=== PATIENT | female | born 1995 | race Caucasian/White ===

== ENCOUNTER 2017-10-30 20:16 | Emergency (ER) | payer OTHER ==
[~2017-10-30] VITALS: Ht 162.6 cm; Wt 66.0 kg
[2017-10-31 02:11] LABS: CLARITY URINE CLOUDY (CLEAR); COLOR URINE YELLOW (YELLOW); KETONES URINE 4+ (NEGATIVE); LEUKOCYTE ESTERASE URINE 2+ (NEGATIVE); NITRITE URINE NEGATIVE (NEGATIVE); OCCULT BLOOD URINE 1+ (NEGATIVE); PH URINE 5.5 (4.5-8.0); PROTEIN URINE 1+ (NEGATIVE); SPECIFIC GRAVITY URINE 1.018 (1.005-1.030)
[2017-10-31] MEDS ORDERED: MORPHINE SULFATE 4 MG/ML CPJ (NOT FOR IM USE) IV STA (02:35)
[2017-10-31] MEDS ORDERED: ONDANSETRON HCL 4MG/2ML VIAL IV STA (02:35)
[2017-10-31] MEDS ORDERED: SODIUM CHLORIDE 0.9% 1,000 ML IV ONE (02:35)
[2017-10-31 02:55] LABS: BASOPHILS % 0.2 % (0.0-2.0); EOSINOPHILS % 0.1 % (0.0-5.0); HEMATOCRIT. 40.3 % (36.0-48.0); HEMOGLOBIN. 13.9 g/dL (12.0-16.0); LYMPHOCYTES % 8.6 % (20.0-50.0); MEAN CORPUSCULAR HEMOGLOBIN 28.7 pg (28.0-32.0); MEAN CORPUSCULAR VOLUME 82.9 fL (81.0-99.0); MEAN PLATELET VOLUME 8.9 fl (7.4-10.4); MONOCYTES % 10.6 % (2.0-8.0); NEUTROPHILS % 80.5 % (40.0-76.0); PLATELET 276 x1000/uL (130-400); RED BLOOD CELL COUNT 4.86 mill/uL (4.2-5.4); RED CELL DISTRIBUTION WIDTH 14.1 % (11.6-14.6)
[2017-10-31 03:07] LABS: CARBON DIOXIDE 21 mEq/L (21-32); CHLORIDE 101 mEq/L (98-107)
[2017-10-31] MEDS ORDERED: CEFTRIAXONE 1 G PREMIX 50 ML IV SCH (05:00)
[2017-10-31] MEDS ORDERED: MORPHINE SULFATE 4 MG/ML CPJ (NOT FOR IM USE) IV ONE (07:00)
[2017-10-31] MEDS ORDERED: LEVOFLOXACIN 750MG PREMIX 150 ML IV ONE (07:00)
[2017-10-31] MEDS ORDERED: ONDANSETRON HCL 4MG/2ML VIAL IV ONE (07:00)
[2017-10-31 07:20] LABS: PLATELET ESTIMATE NORMAL
[2017-10-31 09:18] VITALS: BP 120/68
== END 2017-10-31 09:19 | disposition home or self-care (01) ==
LOC: ER 20:45
DX: N39.0 Urinary tract infection, site not specified (principal)
CPT/HCPCS: 36415; 76770; 76856; 80053; 81001; 83690; 85025; 96361; 96365; 96367; 96375; 96376; 99285; J0696; J1956; J2270; J2405; J7030; Z7610

== ENCOUNTER 2018-02-18 21:41 | Emergency (ER) | payer OTHER ==
[~2018-02-18] VITALS: Ht 162.6 cm; Wt 64.0 kg
[2018-02-18] MEDS ORDERED: SODIUM CHLORIDE 0.9% 1,000 ML IV ONE (21:50)
[2018-02-18 23:03] LABS: BASOPHILS % 0.5 % (0.0-2.0); EOSINOPHILS % 3.3 % (0.0-5.0); HEMATOCRIT. 40.9 % (36.0-48.0); HEMOGLOBIN. 14.1 g/dL (12.0-16.0); LYMPHOCYTES % 17.6 % (20.0-50.0); MEAN CORPUSCULAR HEMOGLOBIN 30.4 pg (28.0-32.0); MEAN CORPUSCULAR VOLUME 88.1 fL (81.0-99.0); MEAN PLATELET VOLUME 9.3 fl (7.4-10.4); MONOCYTES % 5.3 % (2.0-8.0); NEUTROPHILS % 73.3 % (40.0-76.0); PLATELET 235 x1000/uL (130-400); RED BLOOD CELL COUNT 4.64 mill/uL (4.2-5.4); RED CELL DISTRIBUTION WIDTH 13.2 % (11.6-14.6)
[2018-02-18 23:07] LABS: CHLORIDE 108 mEq/L (98-107)
[2018-02-18 23:09] LABS: HCG SCREEN NEGATIVE
[2018-02-18 23:13] LABS: INR 1.1; PARTIAL THROMBOPLASTIN TIME 26.6 sec (23.4-31.0); PROTHROMBIN TIME 11.4 sec (9.4-11.6)
[2018-02-19] MEDS ORDERED: HYDROCODONE/ACETAMINOPHEN 5/325MG TABLET PO ONE (00:15)
[2018-02-19] MEDS ORDERED: ONDANSETRON 4MG ODT PO ONE (00:15)
[2018-02-19] MEDS ORDERED: ONDANSETRON HCL 4MG/2ML VIAL IV ONE (01:15)
[2018-02-19] MEDS ORDERED: KETOROLAC 30MG/ML VIAL IV ONE (01:15)
[2018-02-19 01:40] VITALS: BP 110/55
== END 2018-02-19 01:44 | disposition home or self-care (01) ==
LOC: ER 22:01
DX: R07.89 Other chest pain (principal); E86.0 Dehydration; I10 Essential (primary) hypertension
CPT/HCPCS: 36415; 71045; 80053; 83690; 83880; 84484; 84703; 85025; 85610; 85730; 93005; 96361; 96374; 96375; 99285; J1885; J2405; J7030; Q0162; Z7610

== ENCOUNTER 2018-11-05 11:42 | Emergency (ER) | payer OTHER ==
[~2018-11-05] VITALS: Ht 162.6 cm; Wt 58.0 kg
[2018-11-05] MEDS ORDERED: ONDANSETRON HCL 4MG/2ML INJ IV STA (12:54)
[2018-11-05] MEDS ORDERED: ACETAMINOPHEN 325MG TABLET PO STA (12:54)
[2018-11-05] MEDS ORDERED: SODIUM CHLORIDE 0.9% 1,000 ML IV ONE ×2 (12:54→15:04)
[2018-11-05 13:19] LABS: CHLORIDE 107 mEq/L (98-107)
[2018-11-05 13:25] LABS: INR 1.1; PROTHROMBIN TIME 10.8 sec (9.1-11.1)
[2018-11-05 13:27] LABS: BASOPHILS % 0.5 % (0.0-2.0); EOSINOPHILS % 3.1 % (0.0-5.0); HEMATOCRIT. 41.6 % (36.0-48.0); HEMOGLOBIN. 14.4 g/dL (12.0-16.0); LYMPHOCYTES % 22.5 % (20.0-50.0); MEAN CORPUSCULAR HEMOGLOBIN 30.9 pg (28.0-32.0); MEAN CORPUSCULAR VOLUME 89.4 fL (81.0-99.0); MEAN PLATELET VOLUME 9.4 fl (7.4-10.4); MONOCYTES % 9.3 % (2.0-8.0); NEUTROPHILS % 64.6 % (40.0-76.0); PLATELET 214 x1000/uL (130-400); RED BLOOD CELL COUNT 4.65 mill/uL (4.2-5.4); RED CELL DISTRIBUTION WIDTH 12.9 % (11.6-14.6)
[2018-11-05 14:24] LABS: CLARITY URINE CLEAR (CLEAR); COLOR URINE YELLOW (YELLOW); KETONES URINE NEGATIVE (NEGATIVE); LEUKOCYTE ESTERASE URINE NEGATIVE (NEGATIVE); NITRITE URINE NEGATIVE (NEGATIVE); OCCULT BLOOD URINE NEGATIVE (NEGATIVE); PH URINE 5.5 (4.5-8.0); PROTEIN URINE NEGATIVE (NEGATIVE); SPECIFIC GRAVITY URINE 1.011 (1.005-1.030); UROBILINOGEN URINE 0.2 E.U./dL (0.2-1.0)
[2018-11-05 14:51] LABS: *AMPHETAMINES SCREEN URINE NEGATIVE (NEGATIVE); *BARBITURATES SCREEN URINE NEGATIVE (NEGATIVE); *BENZODIAZEPINES SCREEN URINE NEGATIVE (NEGATIVE); *COCAINE SCREEN URINE NEGATIVE (NEGATIVE)
[2018-11-05 14:52] LABS: METHADONE URINE SCREEN NEGATIVE (NEGATIVE); OPIATES URINE SCREEN NEGATIVE (NEGATIVE); PHENCYCLIDINE URINE SCREEN NEGATIVE (NEGATIVE)
[2018-11-05 14:55] LABS: CANNABINOID URINE SCREEN PRESUMTIVE POSITIVE (NEGATIVE)
[2018-11-05 17:01] VITALS: BP 119/81
== END 2018-11-05 18:14 | disposition home or self-care (01) ==
LOC: ER 12:54
DX: R53.1 Weakness (principal); R51 Headache; R11.0 Nausea
CPT/HCPCS: 36415; 80053; 80305; 81003; 81025; 83690; 85025; 85610; 93005; 96361; 96374; 99284; J2405; J7030

== ENCOUNTER 2018-11-06 09:18 | Emergency (ER) | payer SELFPAY ==
[~2018-11-06] VITALS: Ht 162.6 cm; Wt 56.4 kg
[2018-11-06] MEDS ORDERED: KETOROLAC 30MG/ML VIAL IV STA (09:46)
[2018-11-06] MEDS ORDERED: SODIUM CHLORIDE 0.9% 1,000 ML IV ONE (09:46)
[2018-11-06] MEDS ORDERED: ONDANSETRON HCL 4MG/2ML INJ IV STA (09:46)
[2018-11-06] MEDS ORDERED: DEXAMETHASONE 10 MG/ML VIAL IV ONE (10:00)
[2018-11-06] MEDS ORDERED: FENTANYL CITRATE/PF 50MCG/ML 2ML VIAL IV ONE (10:00)
[2018-11-06 10:17] LABS: CLARITY URINE CLEAR (CLEAR); COLOR URINE YELLOW (YELLOW); KETONES URINE NEGATIVE (NEGATIVE); LEUKOCYTE ESTERASE URINE NEGATIVE (NEGATIVE); NITRITE URINE NEGATIVE (NEGATIVE); OCCULT BLOOD URINE NEGATIVE (NEGATIVE); PH URINE 6.5 (4.5-8.0); PROTEIN URINE NEGATIVE (NEGATIVE); UROBILINOGEN URINE 0.2 E.U./dL (0.2-1.0)
[2018-11-06 10:30] LABS: *AMPHETAMINES SCREEN URINE NEGATIVE (NEGATIVE); *BARBITURATES SCREEN URINE NEGATIVE (NEGATIVE); *BENZODIAZEPINES SCREEN URINE NEGATIVE (NEGATIVE)
[2018-11-06 10:30] LABS: BASOPHILS % 0.6 % (0.0-2.0); HEMATOCRIT. 41.8 % (36.0-48.0); HEMOGLOBIN. 14.5 g/dL (12.0-16.0); LYMPHOCYTES % 14.3 % (20.0-50.0); MEAN CORPUSCULAR HEMOGLOBIN 31.2 pg (28.0-32.0); MEAN CORPUSCULAR VOLUME 90.1 fL (81.0-99.0); MEAN PLATELET VOLUME 9.5 fl (7.4-10.4); MONOCYTES % 10.8 % (2.0-8.0); NEUTROPHILS % 69.3 % (40.0-76.0); PLATELET 189 x1000/uL (130-400); RED BLOOD CELL COUNT 4.64 mill/uL (4.2-5.4); RED CELL DISTRIBUTION WIDTH 12.8 % (11.6-14.6)
[2018-11-06 10:31] LABS: *COCAINE SCREEN URINE NEGATIVE (NEGATIVE); METHADONE URINE SCREEN NEGATIVE (NEGATIVE); OPIATES URINE SCREEN NEGATIVE (NEGATIVE); PHENCYCLIDINE URINE SCREEN NEGATIVE (NEGATIVE)
[2018-11-06 10:33] LABS: CANNABINOID URINE SCREEN PRESUMTIVE POSITIVE (NEGATIVE)
[2018-11-06 10:37] LABS: CHLORIDE 109 mEq/L (98-107)
[2018-11-06 10:42] LABS: ETHANOL BLOOD < 10 mg/dL
[2018-11-06 10:44] LABS: INR 1.1; PARTIAL THROMBOPLASTIN TIME 27.9 sec (23.4-31.0); PROTHROMBIN TIME 10.7 sec (9.1-11.1)
[2018-11-06 10:57] LABS: HCG SCREEN NEGATIVE
[2018-11-06 12:40] VITALS: BP 118/70
== END 2018-11-06 13:11 | disposition home or self-care (01) ==
LOC: ER 09:18
DX: R51 Headache (principal); R42 Dizziness and giddiness; R11.2 Nausea with vomiting, unspecified; F12.10 Cannabis abuse, uncomplicated; N15.9 Renal tubulo-interstitial disease, unspecified
CPT/HCPCS: 36415; 70450; 80053; 80305; 81003; 81025; 83690; 84484; 84703; 85025; 85610; 85730; 93005; 96361; 96374; 96375; 99284; G0482; J1100; J1885; J2405; J3010; J7030

== ENCOUNTER 2019-07-22 12:59 | Emergency (ER) | payer MEDICAID, OTHER ==
[~2019-07-22] VITALS: Ht 162.6 cm; Wt 58.0 kg
[2019-07-22] MEDS ORDERED: KETOROLAC 30MG/ML VIAL IV STA (15:27)
[2019-07-22] MEDS ORDERED: SODIUM CHLORIDE 0.9% 1,000 ML IV ONE (15:27)
[2019-07-22] MEDS ORDERED: ONDANSETRON HCL 4MG/2ML INJ IV STA (15:27)
[2019-07-22 16:08] LABS: BASOPHILS % 0.1 % (0.0-2.0); EOSINOPHILS % 5.5 % (0.0-5.0); HEMATOCRIT. 40.9 % (36.0-48.0); HEMOGLOBIN. 14.2 g/dL (12.0-16.0); LYMPHOCYTES % 17.1 % (20.0-50.0); MEAN CORPUSCULAR HEMOGLOBIN 31.1 pg (28.0-32.0); MEAN CORPUSCULAR VOLUME 89.5 fL (81.0-99.0); MONOCYTES % 9.1 % (2.0-8.0); NEUTROPHILS % 68.2 % (40.0-76.0); PLATELET 234 x1000/uL (130-400); RED BLOOD CELL COUNT 4.57 mill/uL (4.2-5.4); RED CELL DISTRIBUTION WIDTH 13.1 % (11.6-14.6)
[2019-07-22 16:09] LABS: CLARITY URINE CLEAR (CLEAR); COLOR URINE DARK YELLOW (YELLOW); KETONES URINE 1+ (NEGATIVE); LEUKOCYTE ESTERASE URINE TRACE (NEGATIVE); NITRITE URINE NEGATIVE (NEGATIVE); OCCULT BLOOD URINE NEGATIVE (NEGATIVE); PH URINE 5.5 (4.5-8.0); PROTEIN URINE TRACE (NEGATIVE); UROBILINOGEN URINE 0.2 E.U./dL (0.2-1.0)
[2019-07-22 16:12] LABS: CHLORIDE 112 mEq/L (98-107)
[2019-07-22 16:13] LABS: PROTHROMBIN TIME 10.8 sec (9.6-11.0)
[2019-07-22 18:09] VITALS: BP 121/69
== END 2019-07-22 18:14 | disposition home or self-care (01) ==
LOC: ER 12:59
DX: R10.13 Epigastric pain (principal); G43.909 Migraine, unspecified, not intractable, without status migrainosus
CPT/HCPCS: 36415; 74176; 80053; 81003; 83690; 85025; 85610; 96374; 96375; 99284; J1885; J2405; J7030

== ENCOUNTER 2020-06-24 10:14 | Emergency (ER) | payer OTHER ==
[~2020-06-24] VITALS: Ht 157.5 cm; Wt 66.0 kg
[2020-06-24 10:15] VITALS: BP 101/74
[2020-06-24] MEDS ORDERED: IBUPROFEN 600MG TABLET PO STA (11:11)
== END 2020-06-24 11:35 | disposition home or self-care (01) ==
LOC: ER 10:24
DX: N63.21 Unspecified lump in the left breast, upper outer quadrant (principal); G43.909 Migraine, unspecified, not intractable, without status migrainosus; Z80.49 Family history of malignant neoplasm of other genital organs
CPT/HCPCS: 81025; 99282

== ENCOUNTER 2020-08-07 15:10 | Emergency (ER) | payer OTHER ==
[~2020-08-07] VITALS: Ht 157.5 cm; Wt 63.5 kg
[2020-08-07] MEDS ORDERED: IBUPROFEN 600MG TABLET PO ONE (16:00)
[2020-08-07 16:29] VITALS: BP 110/69
== END 2020-08-07 16:31 | disposition home or self-care (01) ==
LOC: ER 15:10
DX: J35.1 Hypertrophy of tonsils (principal); F41.9 Anxiety disorder, unspecified; G43.909 Migraine, unspecified, not intractable, without status migrainosus
CPT/HCPCS: 87070; 87430; 99283

== ENCOUNTER 2021-04-04 19:55 | Emergency (ER) | payer OTHER ==
[~2021-04-04] VITALS: Ht 162.6 cm; Wt 63.6 kg
[2021-04-04 21:00] LABS: CLARITY URINE TURBID (CLEAR); COLOR URINE DARK YELLOW (YELLOW); KETONES URINE 3+ (NEGATIVE); LEUKOCYTE ESTERASE URINE 1+ (NEGATIVE); NITRITE URINE NEGATIVE (NEGATIVE); OCCULT BLOOD URINE 3+ (NEGATIVE); PH URINE 5.5 (4.5-8.0); PROTEIN URINE 1+ (NEGATIVE); SPECIFIC GRAVITY URINE 1.035 (1.005-1.030); UROBILINOGEN URINE 0.2 E.U./dL (0.2-1.0)
[2021-04-05] MEDS ORDERED: HYDROCODONE/ACETAMINOPHEN 5/325MG TABLET PO ONE (00:45)
[2021-04-05] MEDS ORDERED: IBUP-2029 MT (01:40)
[2021-04-05] MEDS ORDERED: CEPH500T MT (01:40)
[2021-04-05 02:09] VITALS: BP 131/71
== END 2021-04-05 02:17 | disposition home or self-care (01) ==
LOC: ER 19:55
DX: N10 Acute pyelonephritis (principal); F41.9 Anxiety disorder, unspecified; G43.909 Migraine, unspecified, not intractable, without status migrainosus
CPT/HCPCS: 81003; 81025; 99283

== ENCOUNTER 2021-04-21 20:21 | Emergency (ER) | payer OTHER ==
[~2021-04-21] VITALS: Ht 162.6 cm; Wt 66.3 kg
[~2021-04-21 20:21] MED LIST: CEPH500T MT; IBUP-2029 MT
[2021-04-21 21:20] LABS: BASOPHILS % 0.5 % (0.0-2.0); EOSINOPHILS % 2.2 % (0.0-5.0); HEMATOCRIT. 37.7 % (36.0-48.0); HEMOGLOBIN. 13.6 g/dL (12.0-16.0); LYMPHOCYTES % 20.7 % (20.0-50.0); MEAN CORPUSCULAR HEMOGLOBIN 31.3 pg (28.0-32.0); MEAN CORPUSCULAR VOLUME 86.6 fL (81.0-99.0); MEAN PLATELET VOLUME 9.5 fl (7.4-10.4); NEUTROPHILS % 69.6 % (40.0-76.0); PLATELET 238 x1000/uL (130-400); RED BLOOD CELL COUNT 4.35 mill/uL (4.2-5.4); RED CELL DISTRIBUTION WIDTH 12.9 % (11.6-14.6)
[2021-04-21 21:21] LABS: CHLORIDE 110 mEq/L (98-107)
[2021-04-21] MEDS ORDERED: POTASSIUM CHLORIDE 20MEQ TABLET SR PO ONE (21:45)
[2021-04-21] MEDS ORDERED: IBUPROFEN 600MG TABLET PO ONE (21:45)
[2021-04-21 22:06] VITALS: BP 119/79
== END 2021-04-21 22:07 | disposition home or self-care (01) ==
LOC: ER 20:21
DX: R07.89 Other chest pain (principal); E87.6 Hypokalemia; F41.9 Anxiety disorder, unspecified
CPT/HCPCS: 36415; 71045; 80053; 85025; 93005; 99285